=== PATIENT | female | born 1980 | race Two or more races ===

== ENCOUNTER 2016-08-28 05:55 | Day surgery (SDC) | payer BC ==
[~2016-08-28 05:55] MED LIST: FEROSUL325 MG PO; IRON325 M2 PO; MOTRIN800 MG PO; OXYCODONE/APAP PO; PRENATAL VITAMI PO; SYNTHROID75 MC1 PO; VITAMIN C500 M3 PO; [UNRECOGNIZED DRUG - REMARK]
== END 2016-08-28 13:45 ==
LOC: SRG 05:55 → SHSB 06:00 → ORE 10:02 → PACU 10:46 → SHSB 11:40
PROC: 09U777Z Supplement Right Tympanic Membrane with Autologous Tissue Substitute, Via Natural or Artificial Opening (ICD-10-PCS; principal; 2016-08-28)
DX: H72.91 Unspecified perforation of tympanic membrane, right ear (principal); E66.01 Morbid (severe) obesity due to excess calories; Z68.37 Body mass index [BMI] 37.0-37.9, adult; E03.9 Hypothyroidism, unspecified; Z98.890 Other specified postprocedural states; Z79.899 Other long term (current) drug therapy
CPT/HCPCS: J0171